=== PATIENT | male | born 1970 | race Two or more races ===

== ENCOUNTER 2018-01-31 02:33 | Emergency (ER) | payer OTHER ==
[~2018-01-31] VITALS: Ht 167.6 cm; Wt 72.6 kg
[2018-01-31] MEDS ORDERED: Hydrogen Peroxide 473ml Bottle TOPIC ONE (02:45)
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
[2018-01-31] MEDS ORDERED: Bacitracin Oint UD TOPIC ONE ×2 (02:57→03:00)
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
[2018-01-31 05:01] VITALS: BP_SYST 128; BP_SYST 144; BP_DIAS 89
== END 2018-01-31 05:02 ==
LOC: EMR 02:40
DX: S01.81XA Laceration without foreign body of other part of head, initial encounter (principal); S09.90XA Unspecified injury of head, initial encounter; Y04.2XXA Assault by strike against or bumped into by another person, initial encounter
CPT/HCPCS: 70450; 99284